=== PATIENT | female | born 1945 | race American Indian/Alaskan Native ===

== ENCOUNTER 2017-01-02 10:55 | Outpatient (CLI) | payer MEDICARE, OTHER ==
--- NOTE | 2017-01-02 13:36 | Mammography Report ---
Unilateral mammogram left: Compared to 12/27/15. CAD study utilized. Findings: Predominance of adipose tissue left breast. Benign density. Benign axillary nodes. Benign calcifications. Impression: Benign findings. Annual followup recommended. BI-RADS CATEGORY: 2 = Benign ACR BI-RADS MAMMOGRAPHIC CODES: 0 = Needs additional imaging evaluation; 1 = Negative; 2 = Benign; 3 = Probably benign; 4 = Suspicious; 5 = Malignant; 6 = Known biopsy-proven malignancy COMMENT: 1. Dense breast tissue, i.e., adenosis, fibrocystic changes, etc., may obscure an underlying neoplasm. 2. Approximately 10% of cancers are not detected with mammography. 3. A negative mammography report should not delay biopsy if a clinically suspicious mass is present.
--- NOTE | 2017-01-02 14:11 | Mammography Report ---
BONE DENSITY STUDY: DEFINITIONS: BMD = Bone Mineral Density T-score = BMD related to mean peak bone mass of young adult (mean expressed in Standard Deviation) Z-score = Age matched BMD expressed in SD World Health Organization (WHO) Diagnostic Criteria Normal T-score > -1 SD Osteopenia T-score between -1 and -2.4 SD Osteoporosis T-score -2.5 SD or below FINDINGS: The weighted average BMD of lumbar spine L1-L4 is 0.86 with a T-score of -1.6. The weighted average BMD of hip is 0.872 with a T-score of -0.6. IMPRESSION: The patient's T-score is diagnostic for normal bone density and low relative risk for fracture. NOTE: BMD is not the only risk factor for fracture; also consider factors such as the patient's age, risk of falling, previous osteoporotic fracture, family history of osteoporotic fractures, current smoker, and low body weight. Olsen's triangle is a region of interest in femur, predominantly of trabecular bone. It is not a true anatomic site, and ISCD does not recommend its use clinically.
== END 2017-01-02 10:56 | disposition home or self-care (01) ==
LOC: MAMMO 10:55
PROVIDERS: ATTEND Internal Medicine
DX: Z12.31 Encounter for screening mammogram for malignant neoplasm of breast (principal); M81.0 Age-related osteoporosis without current pathological fracture; M85.9 Disorder of bone density and structure, unspecified
CPT/HCPCS: 77080; G0202

== ENCOUNTER 2018-01-02 11:15 | Outpatient (CLI) | payer MEDICARE, OTHER ==
--- NOTE | 2018-01-05 08:31 | Mammography Report ---
LEFT DIGITAL SCREENING MAMMOGRAM with CAD: 01/02/18 11:15:00 CLINICAL: Routine screening. Breast cancer survivor status post right mastectomy. COMPARISON:01/02/17 FINDINGS: The breast is mostly fatty.No mass, architectural distortion or suspicious calcifications. IMPRESSION: No mammographic evidence of malignancy. BI-RADS CATEGORY: 1 - - Negative RECOMMENDATION: Routine screening in one year. ACR BI-RADS MAMMOGRAPHIC CODES: 0 = Needs additional imaging evaluation; 1 = Negative; 2 = Benign; 3 = Probably benign; 4 = Suspicious; 5 = Malignant; 6 = Known biopsy-proven malignancy COMMENT: 1. Dense breast tissue, i.e., adenosis, fibrocystic changes, etc., may obscure an underlying neoplasm. 2. Approximately 10% of cancers are not detected with mammography. 3. A negative mammography report should not delay biopsy if a clinically suspicious mass is present. COMMENT: Patient follow-up letters are generated via our [employer] application.
== END 2018-01-02 11:16 | disposition home or self-care (01) ==
LOC: MAMMO 11:15
PROVIDERS: ATTEND Internal Medicine
DX: Z12.31 Encounter for screening mammogram for malignant neoplasm of breast (principal); Z90.11 Acquired absence of right breast and nipple

== ENCOUNTER 2019-01-05 10:47 | Outpatient (CLI) | payer MEDICARE, OTHER ==
--- NOTE | 2019-01-06 08:59 | Mammography Report ---
Left mammogram: Cancer survivor with right mastectomy. Routine views of the left breast demonstrates a generally fatty breast pattern. A couple of small circumscribed nodules are identified. The finding is not otherwise remarkable nor change compared to prior exams dating back to 2015. CAD used. Impression: Stable left mammogram. Annual mammogram followup. BI-RADS CATEGORY: 1 = Negative ACR BI-RADS MAMMOGRAPHIC CODES: 0 = Needs additional imaging evaluation; 1 = Negative; 2 = Benign; 3 = Probably benign; 4 = Suspicious; 5 = Malignant; 6 = Known biopsy-proven malignancy COMMENT: 1. Dense breast tissue, i.e., adenosis, fibrocystic changes, etc., may obscure an underlying neoplasm. 2. Approximately 10% of cancers are not detected with mammography. 3. A negative mammography report should not delay biopsy if a clinically suspicious mass is present.
== END 2019-01-05 10:48 | disposition home or self-care (01) ==
LOC: MAMMO 10:47
PROVIDERS: ATTEND Internal Medicine
DX: Z12.31 Encounter for screening mammogram for malignant neoplasm of breast (principal); Z91.040 Latex allergy status
CPT/HCPCS: 77067

== ENCOUNTER 2020-01-07 10:32 | Outpatient (CLI) | payer MEDICARE, OTHER ==
--- NOTE | 2020-01-10 10:54 | Mammography Report ---
DIGITAL SCREENING MAMMOGRAM WITH CAD, 01/07/2020 INDICATION: Routine screening mammography. Breast cancer survivor status post right mastectomy. TECHNIQUE: Digital left 2D mammography was obtained in the craniocaudal and mediolateral oblique pro jections. This examination was interpreted with the benefit of Computer-Aided Detection analysis. COMPARISON: 01/05/2019 FINDINGS: Breast Density: The breast is almost entirely fatty. There is no evidence of dominant mass, suspicious calcifications or architectural distortion in the l eft breast. IMPRESSION: No mammographic evidence of malignancy. Follow up recommendation: Routine yearly BI-RADS Category 1: Negative. A "normal" or negative report should not discourage follow up or biopsy of a clinically significant f inding. A written summary of these findings will be mailed to the patient. The patient will be entered into a mammography reporting system which will generate a reminder letter for the patient's next appointmen t at the appropriate interval. The [employer] recommends yearly mammograms starting at age 40 and continuing as l ethan as a woman is in good health. Breast MRI is recommended for women with an approximate 20-25% or greater lifetime risk of breast cancer, including women with a strong family history of breast or ova katarina cancer or who have been treated for Hodgkin's disease. Signer Name: Bryant Rico MD Signed: 01/10/2020 10:49 AM Workstation Name: [id number]
== END 2020-01-07 10:33 | disposition home or self-care (01) ==
LOC: MAMMO 10:32
PROVIDERS: ATTEND Internal Medicine
DX: Z12.31 Encounter for screening mammogram for malignant neoplasm of breast (principal)
CPT/HCPCS: 77067

== ENCOUNTER 2021-01-29 10:22 | Outpatient (CLI) | payer MEDICARE, OTHER ==
--- NOTE | 2021-01-29 12:13 | Mammography Report ---
DIGITAL SCREENING MAMMOGRAM WITH CAD, 01/29/2021 CLINICAL INFORMATION / INDICATION: Routine screening mammography. SCREENING MAMMO TECHNIQUE: Digital left 2D mammography was obtained in the craniocaudal and mediolateral oblique pro jections. This examination was interpreted with the benefit of Computer-Aided Detection analysis. COMPARISON: 01/02/2017 through 01/07/2020. FINDINGS: Breast Density: The breasts are almost entirely fatty. No dominant mass, suspicious calcifications, or architectural distortion in the left breast. Benign nodularity is stable. There are mild benign breast arterial calcifications. Left axillary lymp h nodes are larger than on the prior studies, but not increased in number. The patient has a history of COVID vaccination in the left arm 2 weeks ago which is the likely cause. IMPRESSION: No mammographic evidence of malignancy. Follow up recommendation: Routine yearly BI-RADS Category 2: Benign. A "normal" or negative report should not discourage follow up or biopsy of a clinically significant f inding. A written summary of these findings will be mailed to the patient. The patient will be entered into a mammography reporting system which will generate a reminder letter for the patient's next appointmen t at the appropriate interval. The [employer] recommends yearly mammograms starting at age 40 and continuing as l ethan as a woman is in good health. Breast MRI is recommended for women with an approximate 20-25% or greater lifetime risk of breast cancer, including women with a strong family history of breast or ova katarina cancer or who have been treated for Hodgkin's disease. Signer Name: Vin Dickson MD Signed: 01/29/2021 12:09 PM Workstation Name: [id number]
== END 2021-01-29 10:23 | disposition home or self-care (01) ==
LOC: MAMMO 10:22
PROVIDERS: ATTEND Internal Medicine
DX: Z12.31 Encounter for screening mammogram for malignant neoplasm of breast (principal)

== ENCOUNTER 2021-03-07 10:37 | Outpatient (CLI) | payer MEDICARE, OTHER ==
--- NOTE | 2021-03-07 11:43 | Mammography Report ---
DEXA BONE DENSITY SCAN INDICATION / CLINICAL INFORMATION: OSTEOPENIA. 75 years Female COMPARISON: None available. LUMBAR SPINE (L1-L4): - Bone mineral density (BMD) = 0.920 g/cm2. - T-score = -1.2 - Z-score = 0.7 Change (%) since most recent prior (if available): 6.3% increase FEMORAL NECKS: - Total left neck Bone mineral density (BMD) = 0.851 g/cm2. - T-score = -0.7 - Z-score = 0.2 Change (%) since most recent prior (if available): 2.4% decrease IMPRESSION: 1. WHO Classification: Osteopenia. Fracture Risk: Increased. 2. 10-Year Fracture Risk (FRAX) = Major Osteoporotic 4.8% / Hip: 0.9%. BMD Reporting Guidelines (ISCD, 2015) BMD Reporting in Postmenopausal Women and in Men Age 50 and Older * T-scores are preferred. * The WHO densitometric classification is applicable. BMD Reporting in Females Prior to Menopause and in Males Younger Than Age 50 * Z-scores, not T-scores, are preferred. This is particularly important in children. * A Z-score of -2.0 or lower is defined as below the expected range for age, and a Z-score above -2. 0 is within the expected range for age. * Osteoporosis cannot be diagnosed in men under age 50 on the basis of BMD alone. * The WHO diagnostic criteria may be applied to women in the menopausal transition. http://www.iscd.org/official-positions/3392-pqlv-zzuwfycu-positions-adult/ Signer Name: Perfecto Rojo MD Signed: 03/07/2021 11:38 AM Workstation Name: [id number]
== END 2021-03-07 10:38 | disposition home or self-care (01) ==
LOC: MAMMO 10:37
PROVIDERS: ATTEND Internal Medicine
DX: M85.88 Other specified disorders of bone density and structure, other site (principal)
CPT/HCPCS: 77080

== ENCOUNTER 2022-02-07 10:56 | Outpatient (CLI) | payer MEDICARE, OTHER ==
--- NOTE | 2022-02-11 14:27 | Mammography Report ---
DIGITAL SCREENING MAMMOGRAM WITH CAD, 02/07/2022 CLINICAL INFORMATION / INDICATION: Routine screening mammography. SCREENING MAMMOGRAM TECHNIQUE: Digital left 2D mammography was obtained in the craniocaudal and mediolateral oblique pro jections. This examination was interpreted with the benefit of Computer-Aided Detection analysis. COMPARISON: Prior mammogram 01/29/2021 and 01/07/2020 FINDINGS: Breast Density: The breasts are almost entirely fatty. No dominant mass, suspicious calcifications, or architectural distortion in the left breast. There has been no significant change compared with the prior examinations. IMPRESSION: No mammographic evidence of malignancy. Follow up recommendation: Routine yearly BI-RADS Category 1: NEGATIVE A "normal" or negative report should not discourage follow up or biopsy of a clinically significant f inding. A written summary of these findings will be mailed to the patient. The patient will be entered into a mammography reporting system which will generate a reminder letter for the patient's next appointmen t at the appropriate interval. The [employer] recommends yearly mammograms starting at age 40 and continuing as l ehtan as a woman is in good health. Breast MRI is recommended for women with an approximate 20-25% or greater lifetime risk of breast cancer, including women with a strong family history of breast or ova katarina cancer or who have been treated for Hodgkin's disease. Signer Name: Cheyenne Fernández MD Signed: 02/11/2022 2:23 PM Workstation Name: [id number]
== END 2022-02-07 10:57 | disposition home or self-care (01) ==
LOC: MAMMO 10:56
PROVIDERS: ATTEND Internal Medicine
DX: Z12.31 Encounter for screening mammogram for malignant neoplasm of breast (principal)